=== PATIENT | male | born 1940 | race Caucasian/White ===

== ENCOUNTER 2019-08-01 13:24 | Outpatient (CLI) | payer MEDICARE, OTHER ==
[~2019-08-01 13:24] MED LIST: LOSA100T14 PO; METO5TAB2 PO; OMEP-110 PO
[2019-08-01 14:36] LABS: ALANINE AMINOTRANSFERASE 25 U/L (12-78); ANION GAP 5 mmol/L (5-15); CALCIUM 8.8 mg/dL (8.5-10.1); CHLORIDE 112 mmol/L (98-107)
[2019-08-01 14:39] LABS: ALKALINE PHOSPHATASE 87 U/L (45-117); BILIRUBIN,TOTAL 0.7 mg/dL (0.2-1.0); CREATININE 1.45 mg/dL (0.7-1.3)
== END 2019-08-01 23:59 | disposition home or self-care (01) ==
LOC: STAR 13:24
PROVIDERS: ATTEND Internal Medicine
DX: Z01.818 Encounter for other preprocedural examination (principal); Z11.59 Encounter for screening for other viral diseases; R10.9 Unspecified abdominal pain; K86.2 Cyst of pancreas; I45.10 Unspecified right bundle-branch block
CPT/HCPCS: 36415; 80053; 93005; U0001

== ENCOUNTER 2019-08-06 08:00 | Day surgery (SDC) | payer MEDICARE, OTHER ==
[~2019-08-06] VITALS: Ht 193 cm; Wt 105.0 kg
[2019-08-06] MEDS ORDERED: CHLORHEXIDINE 15 ML UDC MM STA (08:26)
[2019-08-06] MEDS ORDERED: CHLORHEXIDINE 15 ML UDC ONE (08:31)
[2019-08-06 08:44] VITALS: BP 146/88
[2019-08-06] MEDS ORDERED: LACTATED RINGERS 1,000 ML IV SCH (09:00)
[2019-08-06] MEDS ORDERED: FENTANYL PF 100 MCG/2ML ONE (09:50)
[2019-08-06] MEDS ORDERED: PROPOFOL 10 MG/ML, 20ML ONE ×2 (09:56→10:14)
[2019-08-06] MEDS ORDERED: LIDOCAINE-MPF 2% ,5ML ONE (09:56)
[2019-08-06] MEDS ORDERED: LIDOCAINE 4%, 4 ML SYR/CANN TP ONE (09:57)
[2019-08-06] MEDS ORDERED: FENTANYL PF 100 MCG/2ML IV PRN (10:00)
[2019-08-06] MEDS ORDERED: ONDANSETRON 2MG/ML, 2ML IVPush PRN (10:00)
[2019-08-06] MEDS ORDERED: DIPHENHYDRAMINE 50 MG/ML, 1ML IVPush PRN (10:00)
== END 2019-08-06 11:40 | disposition home or self-care (01) ==
LOC: OUT 08:00
PROVIDERS: ATTEND Internal Medicine
DX: K86.89 Other specified diseases of pancreas (principal); K86.2 Cyst of pancreas; K21.9 Gastro-esophageal reflux disease without esophagitis; I10 Essential (primary) hypertension; Z79.899 Other long term (current) drug therapy; Z88.8 Allergy status to other drugs, medicaments and biological substances; Z90.49 Acquired absence of other specified parts of digestive tract; Z96.652 Presence of left artificial knee joint; Z98.890 Other specified postprocedural states; Z80.0 Family history of malignant neoplasm of digestive organs
CPT/HCPCS: 43242; 88172; 88173; 88177; 88307; J2704; J3010; J7120

== ENCOUNTER 2020-02-04 15:00 | Outpatient (CLI) | payer MEDICARE, OTHER | END 2020-02-04 23:59 | disposition home or self-care (01) | LOC: RAD 15:00 | PROVIDERS: ATTEND Nurse Practitioner Family | DX: U07.1 COVID-19 (principal); M79.662 Pain in left lower leg; R06.02 Shortness of breath | CPT/HCPCS: 71046 ==

== ENCOUNTER → 2020-02-25 | Outpatient (CLI) | payer MEDICARE, OTHER | END | disposition home or self-care (01) | LOC: CVU 12:17 | PROVIDERS: ATTEND Nurse Practitioner Family | DX: U07.1 COVID-19 (principal); R06.02 Shortness of breath | CPT/HCPCS: 93306 ==